=== PATIENT | male | born 1940 | race American Indian/Alaskan Native ===

== ENCOUNTER 2016-08-03 10:51 | Day surgery (SDC) | payer BC ==
[~2016-08-03 10:51] MED LIST: IOPIDINE OD ONE; MYDRIACYL 1% OD ONE; NEOFRIN OD ONE
[2016-08-03] MEDS ORDERED: MYDRIACYL 1% OD ONE (11:31)
[2016-08-03] MEDS ORDERED: IOPIDINE OD ONE (11:31)
[2016-08-03] MEDS ORDERED: NEOFRIN OD ONE (11:31)
[2016-08-03 12:46] VITALS: BP 126/70
== END 2016-08-03 10:52 | disposition home or self-care (01) ==
LOC: OR 10:51
PROVIDERS: ATTEND Specialist
DX: E11.36 Type 2 diabetes mellitus with diabetic cataract (principal); I10 Essential (primary) hypertension; E78.00 Pure hypercholesterolemia, unspecified; F10.21 Alcohol dependence, in remission; Z86.79 Personal history of other diseases of the circulatory system; Z87.891 Personal history of nicotine dependence; Z85.46 Personal history of malignant neoplasm of prostate; Z98.41 Cataract extraction status, right eye; Z98.42 Cataract extraction status, left eye; Z90.79 Acquired absence of other genital organ(s)
CPT/HCPCS: 82962